=== PATIENT | male | born 1985 | race Two or more races ===

== ENCOUNTER 2019-05-15 20:57 | Inpatient (IN) | payer MEDICAID ==
[~2019-05-15] VITALS: Ht 177.8 cm; Wt 64.4 kg
--- NOTE | 2019-05-15 21:19 | NUR ---
BIBSELF C/O ABD PAIN FOLLOWING EATING AND DRINKING "BEER" FEW HOURS AGO. PT IN EXTREME PAIN, 10/10, HOLDING STOMACH AND CRYING. DENIES CHANGES IN BOWEL/BLADDER HABITS. PLACED ON MONITOR AND MADE COMFORTABLE. GIRLFRIEND AT BEDSIDE. READY FOR EVAL.
[2019-05-15] MEDS ORDERED: PANTOPRAZOLE 40 MG VIAL ONE (21:26)
[2019-05-15] MEDS ORDERED: IV NS 0.9% 1,000 ML BAG IV ONE ×2 (21:30→23:30)
[2019-05-15] MEDS ORDERED: PANTOPRAZOLE 40 MG VIAL IV ONE (21:30)
[2019-05-15 21:37] LABS: BASOPHILS % (AUTO) 0.1 % (0.0-2.0); EOSINOPHILS % (AUTO) 2.2 % (0.0-6.0); HEMATOCRIT 46 % (39-51); HEMOGLOBIN 15.2 g/dL (13.5-17.5); LYMPHOCYTES # (AUTO) 1.4 /CMM (0.8-4.8); LYMPHOCYTES % (AUTO) 11.9 % (20.0-44.0); MEAN CORPUSCULAR HGB CONC 33 g/dl (31.0-36.0); MEAN CORPUSCULAR VOLUME 97 fL (80-96); MONOCYTES # (AUTO) 0.8 /CMM (0.1-1.30); MONOCYTES % (AUTO) 7.1 % (2.0-12.0); NEUTROPHILS # (AUTO) 9.3 /CMM (1.8-8.9); NEUTROPHILS % (AUTO) 78.7 % (43.0-81.0); PLATELET COUNT (AUTO) 257 /CMM (150-450); WHITE BLOOD COUNT (AUTO) 11.8 K/uL (4.3-11.0)
[2019-05-15] MEDS ORDERED: ONDANSETRON HCL/PF 4 MG/2 ML VIAL ONE (21:41)
[2019-05-15] MEDS ORDERED: MORPHINE SULFATE INJ 4 MG/ML DISP.SYRIN ONE (21:41)
[2019-05-15 21:45] LABS: CALCIUM, SERUM 8.5 mg/dL (8.5-10.1); CREATININE 0.9 mg/dL (0.6-1.3); POTASSIUM 3.3 mmol/L (3.5-5.1)
[2019-05-15 21:51] LABS: ALBUMIN 3.8 g/dL (3.4-5.0); BILIRUBIN,DIRECT 0.1 mg/dL (0.0-0.2); BILIRUBIN,TOTAL 0.3 mg/dL (0.2-1.0); TOTAL PROTEIN, SERUM 6.9 g/dL (6.4-8.2)
[2019-05-15] MEDS ORDERED: ONDANSETRON HCL/PF 4 MG/2 ML VIAL IVP ONE (22:00)
[2019-05-15] MEDS ORDERED: MORPHINE SULFATE INJ 2 MG/ML DISP.SYRIN IV ONE (22:00)
--- NOTE | 2019-05-15 22:05 | NUR ---
PT UNABLE TO URINATE AT THIS TIME.
[2019-05-15] MEDS ORDERED: HYDROMORPHONE 1 MG/1 ML DISP.SYRIN ONE (22:09)
[2019-05-15] MEDS ORDERED: KETOROLAC TROMETHAMINE INJ 30 MG/ML VIAL IV ONE (22:30)
[2019-05-15] MEDS ORDERED: PROCHLORPERAZINE EDISYLATE 10 MG/2 ML VIAL ONE (22:30)
[2019-05-15] MEDS ORDERED: HYDROMORPHONE 1 MG/1 ML DISP.SYRIN IV ONE (22:30)
[2019-05-15] MEDS ORDERED: PROCHLORPERAZINE EDISYLATE 10 MG/2 ML VIAL IVP ONE (22:30)
[2019-05-15] MEDS ORDERED: KETOROLAC TROMETHAMINE INJ 60 MG/2 ML VIAL IM ONE (22:30)
[2019-05-15] MEDS ORDERED: POTASSIUM CHLORIDE 20 MEQ TAB.PRT.SR PO ONE ×2 (23:00→23:12)
--- NOTE | 2019-05-15 23:25 | NUR ---
PT UNABLE TO URINATE AT THIS TIME.
--- NOTE | 2019-05-15 23:26 | NUR ---
Patient is resting comfortably in bed with eyes closed. Easily aroused. VSS
[2019-05-16] MEDS ORDERED: IOHEXOL-350 100 ML VIAL IV ONE (00:10)
[2019-05-16] MEDS ORDERED: CT SWABBABLE VALVE TRANS SET 1 EA INFUS.SET MC ONE (00:11)
[2019-05-16] MEDS ORDERED: IV NS 0.9% 250 ML IV ONE (00:11)
--- NOTE | 2019-05-16 00:21 | NUR ---
left for ct scan
--- NOTE | 2019-05-16 00:34 | NUR ---
Patient is resting comfortably in bed with eyes closed. Easily aroused. VSS
--- NOTE | 2019-05-16 01:51 | NUR ---
REPORT GIVEN TO YON BABCOCK.
--- NOTE | 2019-05-16 02:00 | NUR ---
RECEIVED PATIENT FROM ER [facility]IA [employer] FOR DX ABDOMINAL PAIN. AO X 3, ABLE TO MAKE NEEDS KNOWN. PATIENT VERY LETHARGIC, BUT AROUSABLE. IV SITE PATENT, INTACT; FLUSHED. SKIN INTACT. SAFETY REMINDERS GIVEN. ON LOW BED WITH BILATERAL UPPER SIDE RAILS UP. CALL DE JESUS WITHIN EASY REACH. WILL CONTINUE TO MONITOR.
--- NOTE | 2019-05-16 02:09 | NUR ---
pt was transferred to 204-1 in stable condition
[2019-05-16] MEDS ORDERED: IV NS 0.9% 1,000 ML IV PRN (03:20)
[2019-05-16] MEDS ORDERED: MAG HYDROX/AL HYDROX/SIMETH 30 ML UDC PO PRN (03:30)
[2019-05-16] MEDS ORDERED: Z GUARD REMEDY 2 OZ OINT TP PRN (03:30)
[2019-05-16] MEDS ORDERED: ONDANSETRON HCL/PF 4 MG/2 ML VIAL IVP PRN (03:30)
[2019-05-16] MEDS ORDERED: HYDROCODONE/APAP 5/325MG 1 EACH TABLET PO PRN (03:30)
[2019-05-16] MEDS ORDERED: MAGNESIUM HYDROXIDE 30 ML UDC PO PRN (03:30)
[2019-05-16] MEDS ORDERED: ACETAMINOPHEN 325 MG TABLET PO PRN (03:30)
[2019-05-16] MEDS ORDERED: MORPHINE SULFATE INJ 2 MG/ML DISP.SYRIN IV PRN (03:30)
--- NOTE | 2019-05-16 06:12 | NUR ---
PATIENT ASLEEP, EASILY AROUSABLE. RESPIRATIONS EVEN. NO SIGNS OF PAIN NOTED. IVF INFUSING ORDERED. NEEDS ATTENDED. COMFORT MEASURES AND SAFETY PRECAUTIONS IN PLACE. WILL GIVE REPORT TO DAY SHIFT FOR CONTINUITY OF CARE.
[2019-05-16 06:34] LABS: EOSINOPHILS % (AUTO) 0.1 % (0.0-6.0); HEMATOCRIT 45 % (39-51); HEMOGLOBIN 15.1 g/dL (13.5-17.5); LYMPHOCYTES # (AUTO) 0.3 /CMM (0.8-4.8); LYMPHOCYTES % (AUTO) 2.9 % (20.0-44.0); MEAN CORPUSCULAR HGB CONC 34 g/dl (31.0-36.0); MEAN CORPUSCULAR VOLUME 96 fL (80-96); MONOCYTES # (AUTO) 0.3 /CMM (0.1-1.30); MONOCYTES % (AUTO) 2.5 % (2.0-12.0); NEUTROPHILS # (AUTO) 10.1 /CMM (1.8-8.9); NEUTROPHILS % (AUTO) 94.5 % (43.0-81.0); PLATELET COUNT (AUTO) 247 /CMM (150-450); RED BLOOD CELL COUNT(AUTO) 4.71 MIL/uL (4.5-6.0); WHITE BLOOD COUNT (AUTO) 10.7 K/uL (4.3-11.0)
[2019-05-16 06:54] LABS: THYROID STIMULATING HORMONE 0.446 uIU/mL (0.358-3.74)
[2019-05-16 06:55] LABS: ALBUMIN 3.7 g/dL (3.4-5.0); BILIRUBIN,TOTAL 0.5 mg/dL (0.2-1.0); CALCIUM, SERUM 8.4 mg/dL (8.5-10.1); CREATININE 0.7 mg/dL (0.6-1.3); MAGNESIUM 1.8 mg/dL (1.8-2.4); PHOSPHORUS 2.7 mg/dL (2.5-4.9); POTASSIUM 3.7 mmol/L (3.5-5.1); TOTAL PROTEIN, SERUM 6.8 g/dL (6.4-8.2)
--- NOTE | 2019-05-16 07:30 | NUR ---
MS RN OPENING NOTES RECEIVED PT IN BED ASLEEP WITH GIRLFRIEND PRESENT IN BED ASLEEP WELL. PT EASILY AROUSED. TOLERATING RA, WITH NO ACUTE RESPIRATORY DISTRESS. PT DENIES PAIN OR ANY DISCOMFORT. PT DOESN'T WANT TO BE BOTHERED AT THIS TIME.IVF NS 75 ML/HR TO RAC G20, INTACT AND FLUID INFUSING WELL. PT KEPT COMFORTABLE. PT'S BED IN LOWEST, LOCKED POSITION WITH SR X2. CALL LIGHT KEPT WITHIN REACH. WILL CONTINUE PLAN OF CARE.
[2019-05-16 08:00] VITALS: BP 141/105
[2019-05-16] MEDS ORDERED: PANTOPRAZOLE 40 MG VIAL IV SCH (09:00)
--- NOTE | 2019-05-16 09:19 | NUR ---
MS RN NOTES CALLED TO PHARMACY AND SPOKE TO DONTAE REGARDING PANTOPRAZOLE IV NOT AVAILABLE IN THE UNIT. DONTAE STATED SHE WILL CHANGE MEDICATION TO PO. RN MADE AWARE DONTAE PT IS DIFFICULT TO AROUSED AT THIS TIME AND VERY SLEEPY. SALES PROJECT ENGINEER ERIBERTO IN THE UNIT AWARE OF PT'S CONDITION; SALES PROJECT ENGINEER TRIED A LOT OF TIMES TO WAKE PT HIMSELF. WILL CONTINUE TO MONITOR.
[2019-05-16] MEDS ORDERED: PANTOPRAZOLE 40 MG TABLET.DR PO SCH (10:00)
[2019-05-16] MEDS ORDERED: LACTULOSE 10 G/15 ML UDC (PYXIS) PO PRN (10:30)
[2019-05-16 15:43] LABS: APPEARANCE,URINE CLEAR (CLEAR); BILIRUBIN,URINE NEGATIVE (NEGATIVE); BLOOD, URINE NEGATIVE Ery/uL (NEGATIVE); COLOR,URINE YELLOW (YELLOW); KETONES,URINE 2+ (NEGATIVE); LEUKOCYTE ESTERASE ,URINE NEGATIVE (NEGATIVE); NITRITE, URINE NEGATIVE (NEGATIVE); PROTEIN,URINE NEGATIVE (NEGATIVE); UGLUCOSE NEGATIVE (NEGATIVE)
[2019-05-16 16:13] LABS: BACTERIA,URINE Rare /HPF (None Seen); RBC,URINE NONE SEEN /HPF (0-2)
[2019-05-16 16:14] LABS: SQUAMOUS EPITHELIAL CELL,UR Few /HPF (None Seen); WBC,URINE 0-3 /HPF (0-3)
--- NOTE | 2019-05-16 16:15 | NUR ---
MS REHABILITATION SERVICES COORDINATOR NOTES PT TO DISCHARGE HOME. ACCOMPANIED BY GIRLFRIEND/MICHAEL, ALSO PRESENT AT BEDSIDE SINCE THIS MORNING. PT TOLERATING RA, WITH NO ACUTE RESPIRATORY DISTRESS NOTED. PT DENIES ANY PAIN OR DISCOMFORT AT THE TIME OF DISCHARGE. SKIN INTACT, NO PICTURES TAKEN OR FILED IN THE CHART. REVIEWED AND SIGNED DISCHARGE INSTRUCTIONS AND INVENTORY LIST TO PATIENT. ALL NEEDS AND CARE ATTENDED. PIV TO RAC REMOVED, APPLIED DRY DRESSING. PT LEFT THE UNIT AT 1610, ACCOMPANIED BY GIRLFRIEND. PT AMBULATORY, ESCORTED BY SENIOR BIOINFORMATICS SCIENTIST TO THE [facility]. PLATER SUPERVISOR/TS AWARE OF DISCHARGE.
== END 2019-05-16 16:10 | disposition home or self-care (01) | DRG 279 ==
LOC: ER 20:57 → MEDSG2 05-16 01:38
PROVIDERS: ADMIT Nurse Practitioner Acute Care; ATTEND Nurse Practitioner Acute Care
DX: K72.90 Hepatic failure, unspecified without coma (principal); R18.8 Other ascites; E72.20 Disorder of urea cycle metabolism, unspecified; K56.7 Ileus, unspecified; G43.A0 Cyclical vomiting, in migraine, not intractable; F17.210 Nicotine dependence, cigarettes, uncomplicated; E87.6 Hypokalemia; F10.21 Alcohol dependence, in remission; K63.89 Other specified diseases of intestine; F12.90 Cannabis use, unspecified, uncomplicated; N20.0 Calculus of kidney
CPT/HCPCS: 36415; 76700-TC; 80048-TC; 80053-TC; 80061-TC; 80076-TC; 80305; 81000-TC; 82140-TC; 83690-TC; 83735-TC; 84100-TC; 84443-TC; 85025-TC; 87081-TC; C9113; G0378; J0780; J1170; J1885; J2270; J2405; J7030; J7050; Q9967